=== PATIENT | female | born 1985 | race Caucasian/White ===

== ENCOUNTER 2017-05-10 08:43 | Emergency (ER) | payer OTHER ==
[2017-05-10 08:48] VITALS: TEMP 97.9
[2017-05-10] MEDS ORDERED: NS 1,000 ML IV ONE (09:03)
--- NOTE | 2017-05-10 09:12 | EDPHY ---
H & P Time Seen by Provider: 05/10/17 08:51 HPI/ROS: CHIEF COMPLAINT: Syncope, head injury HISTORY OF PRESENT ILLNESS: 31-year-old female presents to the emergency department after having a syncopal episode around 10:30 p.m. last night. The patient states that she got up to get some water and was feeling very dizzy. She then had a syncopal episode and then fell on the hardwood floor. She had positive loss of consciousness. Her boyfriend heard her fall. There was no confusion or postictal state per the boyfriend, however he did state that she had a brief loss of consciousness. She has diffuse frontal headache as well as left-sided facial pain. Denies neck or back pain. Denies chest pain or difficulty breathing. She still continues to feel dizzy. No nausea or vomiting. Denies injury to upper or lower extremities. No visual complaints. REVIEW OF SYSTEMS: Constitutional: No fever, no chills. Eyes: No double or blurry vision. ENT: No sore throat. Respiratory: No cough, no shortness of breath. Cardiac: No chest pain. Gastrointestinal: No abdominal pain, vomiting or diarrhea. Genitourinary: No dysuria. Musculoskeletal: No neck or back pain. Skin: No rashes. Neurological: headache. Past Medical/Surgical History: Negative Social History: Single and works as a Spray Foam Installer at [employer] Smoking Status: Never smoked Physical Exam: General Appearance: Alert, no distress. Mentating normally and answering questions appropriately. No visible signs of trauma to her head. She has reproducible pain with palpation over the left zygomatic arch. No palpable crepitus or other bony abnormality. Eyes: Pupils equal and round. Extraocular motions are all intact. ENT: Mouth: Mucous membranes moist. Respiratory: No wheezing, rhonchi, or rales, lungs are clear to auscultation. Cardiovascular: Regular rate and rhythm. Gastrointestinal: Abdomen is soft and nontender, no masses, no rebound or guarding, bowel sounds normal. Neurological: Alert and oriented x 3, cranial nerves II through XII grossly intact Skin: Warm and dry, no rashes. Musculoskeletal: Nontender to palpate along the cervical, thoracic or lumbar spine. Neck is supple. Extremities: Full range of motion and no peripheral edema. Psychiatric: Patient is oriented X 3, there is no agitation. Constitutional: Initial Vital Signs Temperature (C) 36.6 C 05/10/17 08:45 Heart Rate 57 L 05/10/17 08:45 Respiratory Rate 16 05/10/17 08:45 Blood Pressure 135/95 H 05/10/17 08:45 O2 Sat (%) 97 05/10/17 08:45 O2 Delivery Mode Room Air Allergies/Adverse Reactions: No Known Allergies Allergy (Unverified 05/10/17 08:45) Home Medications: Medication Instructions Recorded Adderall 10 MG (*) 05/10/17 Nortrel 0.5-35-28 Tablet 05/10/17 Medical Decision Making - Diagnostics Imaging Results: Imaging Impressions Head CT 05/10/17 09:03 Impression: Normal. Results called to Dr. Amita Alcantar at 10:39 AM General information for patients regarding this examination can be found at [email or web address]. If you have questions or comments about this report, please contact me at [phone] (hospital) or [phone] (cell). ED Course/Re-evaluation: 31-year-old female who presents after having syncopal episode now with headache and history of head injury. I discussed the pros and cons of CT imaging of her brain including radiation exposure the patient agrees with CT scan. Laboratory studies and EKG are pending. Laboratory studies are unremarkable. EKG reveals normal sinus rhythm. This is were reviewed by Dr. Shorty Holder. CT imaging of the brain was normal. Patient was able to ambulate unassisted. She was given juice. She was encouraged to have close follow-up with her primary care provider. She was given closed-head injury precautions. Differential Diagnosis: Syncope including but not limited to vasovagal syncope, arrhythmia, dehydration , and blood loss. Head injury including but not limited to concussion, skull fracture, intraparenchymal contusion, subarachnoid, subdural and epidural hematoma. - Data Points Laboratory Results: Laboratory Results 05/10/17 09:15 05/10/17 09:15 05/10/17 05/10/17 05/10/17 09:15 09:15 09:15 WBC 9.41 10^3/uL 10^3/uL (3.80-9.50) RBC 4.73 10^6/uL 10^6/uL (4.18-5.33) Hgb 15.4 g/dL g/dL (12.6-16.3) Hct 43.1 % % (38.0-47.0) MCV 91.1 fL fL (81.5-99.8) MCH 32.6 pg pg (27.9-34.1) MCHC 35.7 g/dL g/dL (32.4-36.7) RDW 12.2 % % (11.5-15.2) Plt Count 233 10^3/uL 10^3/uL (150-400) MPV 9.8 fL fL (8.7-11.7) Neut % (Auto) 70.4 % % (39.3-74.2) Lymph % (Auto) 21.4 % % (15.0-45.0) [place] % (Auto) 6.3 % % (4.5-13.0) Eos % (Auto) 1.2 % % (0.6-7.6) Baso % (Auto) 0.4 % % (0.3-1.7) Nucleat RBC Rel Count 0.0 % % (0.0-0.2) Absolute Neuts (auto) 6.63 10^3/uL H 10^3/uL (1.70-6.50) Absolute Lymphs (auto) 2.01 10^3/uL 10^3/uL (1.00-3.00) Absolute Monos (auto) 0.59 10^3/uL 10^3/uL (0.30-0.80) Absolute Eos (auto) 0.11 10^3/uL 10^3/uL (0.03-0.40) Absolute Basos (auto) 0.04 10^3/uL 10^3/uL (0.02-0.10) Absolute Nucleated RBC 0.00 10^3/uL 10^3/uL (0-0.01) Immature Gran % 0.3 % % (0.0-1.1) Immature Gran # 0.03 10^3/uL 10^3/uL (0.00-0.10) Sodium 140 mEq/L mEq/L (134-144) Potassium 4.3 mEq/L mEq/L (3.5-5.2) Chloride 104 mEq/L mEq/L (97-110) Carbon Dioxide 23 mEq/l mEq/l (22-31) Anion Gap 13 mEq/L mEq/L (8-16) BUN 10 mg/dL mg/dL (7-23) Creatinine 0.7 mg/dL mg/dL (0.6-1.0) Estimated GFR > 60 Glucose 101 mg/dL H mg/dL (70-100) Calcium 9.3 mg/dL mg/dL (8.5-10.4) Beta HCG, Qual NEGATIVE Medications Given: Discontinued Medications Sodium Chloride (Ns) 1,000 mls @ 0 mls/hr IV ONCE ONE PRN Reason: Wide Open Stop: 05/10/17 09:04 Last Admin: 05/10/17 09:17 Dose: 1,000 mls Departure - Departure Disposition: Home, Routine, Self-Care Clinical Impression: Syncope Qualifiers: Syncope type: unspecified Qualified Code(s): R55 - Syncope and collapse Head injury Qualifiers: Encounter type: initial encounter Qualified Code(s): S09.90XA - Unspecified injury of head, initial encounter Condition: Good Instructions: Syncope (ED), Head Injury (ED) Additional Instructions: Return to the emergency department if you developed worsening headache, vomiting , altered mental status, or if you feel worse in any way. Activity as tolerated. Follow up with your primary care provider to recheck. Referrals: KIANA DONOVAN [Other] - 1-2 days without fail Stand Alone Forms: Work Excuse
--- NOTE | 2017-05-10 09:14 | CPEKG ---
Heart Rate: 59 RR Interval: 1017 P-R Interval: 164 QRSD Interval: 78 QT Interval: 464 QTC Interval: 460 P [place]: 48 QRS [place]: 71 T Wave [place]: 51 EKG Severity - OTHERWISE NORMAL ECG - EKG Impression: SINUS ARRHYTHMIA, RATE 48-71 Electronically Signed By: Antonio Holder 10-May-2017 14:33:52
[2017-05-10 09:24] LABS: % IMMATURE GRANULYOCYTES 0.3 % (0.0-1.1); ABSOLUTE IMMATURE GRANULOCYTES 0.03 10^3/uL (0.00-0.10); ADD DIFF? NO; ADD MORPH? NO; ADD SCAN? NO; ATYPICAL LYMPHOCYTE FLAG 0 (0-99); FRAGMENT RBC FLAG 0 (0-99); HEMATOCRIT 43.1 % (38.0-47.0); HEMOGLOBIN 15.4 g/dL (12.6-16.3); LEFT SHIFT FLG 0 (0-99); LIPEMIA HEMOLYSIS FLAG 90 (0-99); MEAN CELL HEMOGLOBIN 32.6 pg (27.9-34.1); MEAN CELL HEMOGLOBIN CONCENTR. 35.7 g/dL (32.4-36.7); MEAN CELL VOLUME 91.1 fL (81.5-99.8); MEAN PLATELET VOLUME 9.8 fL (8.7-11.7); PLATELET CLUMPS FLAG 0 (0-99); PLATELET COUNT 233 10^3/uL (150-400); RED BLOOD CELL COUNT 4.73 10^6/uL (4.18-5.33); RED CELL DISTRIBUTION WIDTH 12.2 % (11.5-15.2)
[2017-05-10 10:11] LABS: ANION GAP 13 mEq/L (8-16); CALCIUM 9.3 mg/dL (8.5-10.4); CARBON DIOXIDE 23 mEq/l (22-31); CHLORIDE 104 mEq/L (97-110); CREATININE 0.7 mg/dL (0.6-1.0); GLOMERULAR FILTRATION RATE > 60; GLUCOSE 101 mg/dL (70-100); POTASSIUM 4.3 mEq/L (3.5-5.2); SODIUM 140 mEq/L (134-144)
[2017-05-10 10:45] VITALS: BP 112/56; PULSE 72; RESP 18; O2SAT 95
== END 2017-05-10 11:17 | disposition home or self-care (01) ==
DX: S09.90XA Unspecified injury of head, initial encounter (principal); R55 Syncope and collapse; W01.0XXA Fall on same level from slipping, tripping and stumbling without subsequent striking against object, initial encounter